=== PATIENT | female | born 1985 | race Caucasian/White ===

== ENCOUNTER 2018-02-27 12:01 | Emergency (ER) | payer OTHER ==
[~2018-02-27] VITALS: Ht 165.1 cm; Wt 81.7 kg
[2018-02-27] MEDS ORDERED: Percocet 5-3251 EACH PO (12:59)
[2018-02-27] MEDS ORDERED: Valtrex1000 MG PO (12:59)
[2018-02-27] MEDS ORDERED: LIDO700A20 TOP (12:59)
[2018-02-27] MEDS ORDERED: Zofran Odt4 MG SL (12:59)
== END 2018-02-27 13:10 | disposition home or self-care (01) ==
LOC: ER 12:01
DX: B02.9 Zoster without complications (principal); Z88.8 Allergy status to other drugs, medicaments and biological substances
CPT/HCPCS: 99282

== ENCOUNTER → 2025-05-03 | Outpatient (CLI) | payer OTHER ==
[~2025-05-03] MED LIST: LIDO700A20 TOP; Percocet 5-3251 EACH PO; Valtrex1000 MG PO; Zofran Odt4 MG SL
== END ==
LOC: LAB 09:29 → LAB SHORT 09:29
PROVIDERS: Physician Assistant
DX: Z01.419 Encounter for gynecological examination (general) (routine) without abnormal findings (principal)
CPT/HCPCS: 87624; G0123